=== PATIENT | female | born 1995 | race Caucasian/White ===

== ENCOUNTER 2016-10-03 19:53 | Emergency (ER) | payer OTHER ==
[~2016-10-03] VITALS: Ht 167.6 cm; Wt 60.0 kg
[2016-10-03 19:57] VITALS: TEMP 36.5; Ht 167.6 cm; Wt 60.0 kg
[2016-10-03] MEDS ORDERED: BCPILLS PO (20:10)
--- NOTE | 2016-10-03 20:39 | DIAGNOSTIC IMAGING REPORT ---
RIGHT KNEE 3 VIEWS CLINICAL HISTORY: Right knee pain following injury. COMPARISON: None FINDINGS: Alignment of the right knee is anatomic. There is no acute fracture or joint effusion. There is mild prepatellar soft tissue swelling. IMPRESSION: 1. No acute fracture or joint effusion of the right knee. 2. Mild prepatellar soft tissue swelling. Electronically signed by: Mike Schneider M.D. 10/03/2016 8:37 PM Dictated Date/Time: 10/03/2016 8:37 PM
[2016-10-03] MEDS ORDERED: OXYCODONE HCL IR 5 MG TAB (IMMEDIATE RELEASE) PO STA (21:21)
[2016-10-03] MEDS ORDERED: IBUPROFEN 600 MG TAB PO STA (21:21)
[2016-10-03] MEDS ORDERED: OXYC1TAB3 PO (21:27)
[2016-10-03] MEDS ORDERED: OXYCODONE IR HOME PACK PO ONE (21:30)
[2016-10-03 21:45] VITALS: BP 150/79; PULSE 79; O2SAT 99
--- NOTE | 2016-10-04 00:20 | EMERGENCY ROOM VISIT NOTE ---
History First contact with patient: 20:04 Chief Complaint: KNEEPAIN Stated Complaint: SWOLLEN KNEE, HIT BY BALL History of Present Illness The patient is a 21 year old female who presents to the Emergency Room with complaints of right anterior knee pain after being hit by a softball. Her boyfriend was hitting the ball to her when it hit the knee. The patient reports pain rated a 9 out of 10 with weightbearing. She denies any pain extending into the leg or thigh. Denies paresthesias or numbness of the right foot or toes. She denies any prior history of significant right knee injuries. Review of Systems 10 system review was performed and was negative except for pertinent positives and negatives as indicated in history of present illness Past Medical/Surgical History Medical Problems: (1) No significant past medical history Surgical Problems: (1) No history of previous surgery Family History Unremarkable Social History Smoking Status: Never Smoker Alcohol Use: occasionally Marital Status: single Occupation Status: employed Current/Historical Medications Scheduled Control Pills ( Control Pills), 1 TAB PO DAILY Scheduled PRN Oxycodone Ir (Roxicodone Ir), 1-2 TAB PO Q4H PRN for Pain Allergies Coded Allergies: No Known Allergies (Unverified , 10/03/16) Physical Exam Vital Signs Date Time Temp Pulse Resp B/P Pulse Ox O2 Delivery O2 Flow Rate FiO2 10/03/16 21:45 79 18 150/79 99 Room Air 10/03/16 19:57 36.5 91 18 152/100 100 Room Air Physical Exam CONSTITUTIONAL: Healthy and well nourished. Alert and oriented X 3 with positive affect. Patient appears in moderately severe discomfort from pain. HEENT: Normocephalic, atraumatic. Pupils equal, round and reactive. NECK: Full active range of motion without discomfort. RESPIRATORY: Clear to auscultation bilaterally with no wheezing, crackles, rhonchi or stridor. CARDIOVASCULAR: Regular rate and rhythm with no murmurs, rubs or gallops. MUSCULOSKELETAL: Examination shows right peripatellar edema. No obvious joint effusion. No focal tenderness to palpation through the medial or lateral joint line. No popliteal masses. No focal tenderness to palpation over the proximal tibia or fibula. Distal pulses are intact. INTEGUMENTARY: No rash or other significant dermatologic conditions noted. NEUROLOGIC: No focal neurologic deficits noted. Right lower extremity is sensory intact. Medical Decision & Procedures ER Provider Diagnostic Interpretation: My interpretation of right knee x-rays does not show any patellar fractures or obvious joint effusion. Radiologist report is as follows: RIGHT KNEE 3 VIEWS CLINICAL HISTORY: Right knee pain following injury. COMPARISON: None FINDINGS: Alignment of the right knee is anatomic. There is no acute fracture or joint effusion. There is mild prepatellar soft tissue swelling. IMPRESSION: 1. No acute fracture or joint effusion of the right knee. 2. Mild prepatellar soft tissue swelling. Medications Administered Medications (Trade) Dose Ordered Sig/Obie Route Start Time Stop Time Status Last Admin Dose Admin Oxycodone HCl (Roxicodone Immediate Rel 5MG Home Pack) 1 homepack UD ONCE PO 10/03/16 21:30 10/03/16 21:31 DC 10/03/16 21:37 1 HOMEPACK Oxycodone HCl (Roxicodone Immediate Rel Tab) 5 mg NOW STAT PO 10/03/16 21:21 10/03/16 21:23 DC 10/03/16 21:38 5 MG Ibuprofen (Motrin Tab) 600 mg NOW STAT PO 10/03/16 21:21 10/03/16 21:23 DC 10/03/16 21:37 600 MG ED Course Patient history and physical exam were performed. Nurse's notes were reviewed. The patient had gone to x-ray prior to my exam. X-rays were normal. The patient was administered OxyIR 5 mg for pain. She was encouraged to intermittently apply ice to the knee for swelling. She was dispensed a knee immobilizer and crutches. She was instructed to follow-up with orthopedics for further reevaluation and management, especially if symptoms are not improving within the next 5-7 days. He was provided a home pack and prescription for OxyIR 5 mg. The patient was happy with plan of care, voice understanding of all discharge instructions, and rated her pain a 6 out of 10 at the time of discharge. Impression Primary Impression: Contusion of right patella Departure Information Prescriptions Oxycodone Ir (Roxicodone Ir) 5 Mg Tab 1-2 TAB PO Q4H Y for Pain, #15 TAB For Initial Treatment Prov: El Watson PA 10/03/16 Referrals No Doctor, Assigned (PCP) Patient Instructions My [facility] Problem Qualifiers Primary Impression: Contusion of right patella Encounter type: initial encounter Qualified Codes: S80.01XA - Contusion of right knee, initial encounter
== END 2016-10-03 21:51 | disposition home or self-care (01) ==
LOC: C.EDB 19:55 → C.EDD 21:51
DX: S80.01XA Contusion of right knee, initial encounter (principal); W21.07XA Struck by softball, initial encounter; Y93.64 Activity, baseball; Z79.3 Long term (current) use of hormonal contraceptives